=== PATIENT | female | born 1980 ===

== ENCOUNTER 2019-12-01 14:16 | Emergency (ER) | payer SELFPAY ==
--- NOTE | 2019-12-01 14:43 | EDM.PDOC ---
ED HPI GENERAL MEDICAL PROBLEM - General Stated Complaint: racing pulse Time Seen by Provider: 12/01/19 14:30 Source of Information: Reports: Patient - History of Present Illness INITIAL COMMENTS - FREE TEXT/NARRATIVE: Phuong states that she is very nervous. She notes that palpitations and a rapid heartbeat started around noon. She states that she has a history of anxiety. She does endorse drinking a lot of caffeine. She denies any illicit drug usage. 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 She seemed to have anxiety triggered after bringing in her friend who is in the ER bed next door to her for hallucinations of black worms coming out of her skin and other skin rash and dermatitis concerns. She grew up locally in [place]. - Related Data Allergies Allergy/AdvReac Type Severity Reaction Status Date / Time No Known Allergies Allergy Verified 12/01/19 14:36 Home Meds: Home Meds Phentermine HCl 30 mg PO DAILY 12/01/19 [History] ED ROS GENERAL - Review of Systems Review Of Systems: Comprehensive ROS is negative, except as noted in HPI. ED EXAM, GENERAL - Physical Exam Exam: See Below Exam Limited By: No Limitations General Appearance: Alert, WD/WN, No Apparent Distress, Anxious Eye Exam: Bilateral Eye: EOMI, Normal Inspection Ears: Normal External Exam, Hearing Grossly Normal Nose: Normal Inspection, Normal Mucosa Throat/Mouth: Normal Inspection, Normal Oropharynx, No Airway Compromise Head: Atraumatic, Normocephalic Neck: Normal Inspection, Supple, Non-Tender, Full Range of Motion. No: Thyromegaly Respiratory/Chest: No Respiratory Distress, Lungs Clear, Normal Breath Sounds. No: Rales, Rhonchi, Wheezing Cardiovascular: Regular Rate, Rhythm, Tachycardia. No: No Gallop, No Murmur, No Rub GI/Abdominal: Normal Bowel Sounds, Soft, Non-Tender Back Exam: Normal Inspection, Full Range of Motion Extremities: Normal Inspection, Normal Range of Motion, Non-Tender, No Pedal Edema, Normal Capillary Refill Neurological: Alert, Oriented, CN II-XII Intact, Normal Cognition, No Motor/ Sensory Deficits Psychiatric: Anxious Skin Exam: Warm, Dry, Intact Lymphatic: No Adenopathy Course - Vital Signs Text/Narrative:: Phuong was noted to become tearful after the RN caring for her hooked up her EKG. This revealed sinus tachycardia. After we had some discussion about what we could do to help with her anxiety and search for potential causes of sinus tachycardia, Phuong was agreeable to a trial of a vagal maneuver at the bedside. Her heart rate did not decrease by any means whatsoever. IV was started and lorazepam was titrated as we awaited labs and she was provided with crystalloid replacement as she appeared to be somewhat fluid depleted. Her heart rate gradually trended towards normal sinus rhythm at a pulse of 90. Her anxiety then became resolved. Lab findings were reviewed. She states that she last took phentermine a day or 2 ago. She believes that she is going to stop this. She gets this from Dr. Esparza at [facility]. She states that she also failed metformin as well as Topamax. She reassures me that these records would be available through the clinic at [place]. 1 where another, her symptoms resolved. I was not able to get on the [facility] to verify her stated prescription history, despite a call to the pharmacist, who was not able to be reached on the weekend. Provided standard discharge instructions, mainly returning with any recurrent issues or new concerns otherwise following up with her primary care provider. As an RN, she promises to continue to follow her blood pressure. Despite weight loss of 50 to 60 pounds that has been sustained, she feels that her pressures have been on the elevated side, she will continue to monitor this carefully and follow-up as appropriate. Last Recorded V/S: Last Vital Signs Temp 98.7 F 12/01/19 14:20 Pulse 93 12/01/19 16:12 Resp 20 12/01/19 14:20 BP 153/111 H 12/01/19 14:20 Pulse Ox 100 12/01/19 16:12 - Orders/Labs/Meds Orders: Active Orders 24 hr Category Date Time Status EKG Documentation Completion [RC] ASDIRECTED Care 12/01/19 14:37 Active Labs: Laboratory Tests 12/01/19 12/01/19 12/01/19 Range/Units 14:58 14:58 14:58 WBC 6.3 (4.0-11.0) K/uL RBC 5.03 (3.80-5.80) M/uL Hgb 14.5 (11.5-16.5) g/dL Hct 43.5 (37.0-47.0) % MCV 87 (76-96) fL MCH 28.8 (27.0-32.0) pg MCHC 33.3 (31.0-35.0) g/dL RDW 15.8 (11.0-16.0) % Plt Count 311 (150-500) K/uL MPV 9.4 (6.0-10.0) fL Neut % (Auto) 65.3 (45.0-70.0) % Lymph % (Auto) 24.4 (20.0-40.0) % Nye % (Auto) 8.7 (3.0-10.0) % Eos % (Auto) 0.8 L (1.0-5.0) % Baso % (Auto) 0.8 H (0.0-0.5) % Neut # (Auto) 4.14 (2.00-7.50) K/uL Lymph # (Auto) 1.55 (1.50-4.00) K/uL Nye # (Auto) 0.55 (0.20-0.80) K/uL Eos # (Auto) 0.05 (0.04-0.40) K/uL Baso # (Auto) 0.05 (0.02-0.10) K/uL Sodium 140 (136-145) mmol/L Potassium 3.9 (3.5-5.1) mmol/L Chloride 103 (98-107) mmol/L Carbon Dioxide 22.2 (21.0-32.0) mmol/L Anion Gap 18.7 H (5.0-15.0) mmol/L BUN 8 (8-26) mg/dL Creatinine 0.96 (0.55-1.02) mg/dL Est Cr Clr Drug Dosing 56.07 mL/min Estimated GFR (MDRD) > 60 (>60) MLS/MIN BUN/Creatinine Ratio 8.3 (6-25) Glucose 84 (74-100) mg/dL Calcium 9.0 (8.5-10.1) mg/dL Total Bilirubin 0.6 (0.0-1.0) mg/dL AST 31 (15-37) U/L ALT 40 (12-78) U/L Alkaline Phosphatase 77 (46-116) U/L Troponin I < 0.017 (0.000-0.060) ng/mL Total Protein 7.2 (6.4-8.2) g/dL Albumin 3.9 (3.4-5.0) g/dL Globulin 3.3 (2.2-4.2) g/dL Albumin/Globulin Ratio 1.2 (0.8-2.0) TSH, Ultra Sensitive 3.346 (0.358-3.740) uIU/mL Urine Color Urine Appearance (CLEAR) Urine pH (5.0-8.0) Ur Specific Steens (1.003-1.030) Urine Protein (NEGATIVE) mg/dL Urine Glucose (UA) (NEGATIVE) mg/dL Urine Ketones (NEGATIVE) mg/dL Urine Occult Blood (NEGATIVE) Urine Nitrite (NEGATIVE) Urine Bilirubin (NEGATIVE) Urine Urobilinogen (0.2-1.0) E.U./dL Ur Leukocyte Esterase (NEGATIVE) Urine RBC /HPF Urine WBC /HPF Ur Squamous Epith Cells /HPF Urine HCG, Qual (NEGATIVE) Urine Opiates Screen (NEGATIVE) Ur Oxycodone Screen (NEGATIVE) Urine Methadone Screen (NEGATIVE) Ur Barbiturates Screen (NEGATIVE) Ur Tricyclics Screen (NEGATIVE) Ur Phencyclidine Scrn (NEGATIVE) Ur Amphetamine Screen (NEGATIVE) U Methamphetamines Scrn (NEGATIVE) Urine MDMA Screen (NEGATIVE) U Benzodiazepines Scrn (NEGATIVE) U Cocaine Metab Screen (NEGATIVE) U Marijuana (THC) Screen (NEGATIVE) Ethyl Alcohol < 3.0 (<3.0) mg/dL 12/01/19 12/01/19 12/01/19 Range/Units 16:12 16:13 16:13 WBC (4.0-11.0) K/uL RBC (3.80-5.80) M/uL Hgb (11.5-16.5) g/dL Hct (37.0-47.0) % MCV (76-96) fL MCH (27.0-32.0) pg MCHC (31.0-35.0) g/dL RDW (11.0-16.0) % Plt Count (150-500) K/uL MPV (6.0-10.0) fL Neut % (Auto) (45.0-70.0) % Lymph % (Auto) (20.0-40.0) % Nye % (Auto) (3.0-10.0) % Eos % (Auto) (1.0-5.0) % Baso % (Auto) (0.0-0.5) % Neut # (Auto) (2.00-7.50) K/uL Lymph # (Auto) (1.50-4.00) K/uL Nye # (Auto) (0.20-0.80) K/uL Eos # (Auto) (0.04-0.40) K/uL Baso # (Auto) (0.02-0.10) K/uL Sodium (136-145) mmol/L Potassium (3.5-5.1) mmol/L Chloride (98-107) mmol/L Carbon Dioxide (21.0-32.0) mmol/L Anion Gap (5.0-15.0) mmol/L BUN (8-26) mg/dL Creatinine (0.55-1.02) mg/dL Est Cr Clr Drug Dosing mL/min Estimated GFR (MDRD) (>60) MLS/MIN BUN/Creatinine Ratio (6-25) Glucose (74-100) mg/dL Calcium (8.5-10.1) mg/dL Total Bilirubin (0.0-1.0) mg/dL AST (15-37) U/L ALT (12-78) U/L Alkaline Phosphatase (46-116) U/L Troponin I (0.000-0.060) ng/mL Total Protein (6.4-8.2) g/dL Albumin (3.4-5.0) g/dL Globulin (2.2-4.2) g/dL Albumin/Globulin Ratio (0.8-2.0) TSH, Ultra Sensitive (0.358-3.740) uIU/mL Urine Color Yellow Urine Appearance Clear (CLEAR) Urine pH 7.0 (5.0-8.0) Ur Specific Steens 1.020 (1.003-1.030) Urine Protein Negative (NEGATIVE) mg/dL Urine Glucose (UA) Negative (NEGATIVE) mg/dL Urine Ketones Trace H (NEGATIVE) mg/dL Urine Occult Blood Trace-lysed H (NEGATIVE) Urine Nitrite Negative (NEGATIVE) Urine Bilirubin Negative (NEGATIVE) Urine Urobilinogen 0.2 (0.2-1.0) E.U./dL Ur Leukocyte Esterase Negative (NEGATIVE) Urine RBC 0-5 H /HPF Urine WBC Not seen /HPF Ur Squamous Epith Cells Occasional /HPF Urine HCG, Qual Negative (NEGATIVE) Urine Opiates Screen Negative (NEGATIVE) Ur Oxycodone Screen Negative (NEGATIVE) Urine Methadone Screen Negative (NEGATIVE) Ur Barbiturates Screen Negative (NEGATIVE) Ur Tricyclics Screen Negative (NEGATIVE) Ur Phencyclidine Scrn Negative (NEGATIVE) Ur Amphetamine Screen Positive H (NEGATIVE) U Methamphetamines Scrn Positive H (NEGATIVE) Urine MDMA Screen Negative (NEGATIVE) U Benzodiazepines Scrn Negative (NEGATIVE) U Cocaine Metab Screen Negative (NEGATIVE) U Marijuana (THC) Screen Negative (NEGATIVE) Ethyl Alcohol (<3.0) mg/dL Meds: Medications Discontinued Medications Generic Name Dose Route Start Last Admin Trade Name Freq PRN Reason Stop Dose Admin Sodium Chloride 1,000 mls @ 999 mls/hr 12/01/19 14:36 12/01/19 14:45 Normal Saline IV 12/01/19 15:36 999 mls/hr .BOLUS ONE Administration Sodium Chloride 1,000 mls @ 999 mls/hr 12/01/19 16:13 Normal Saline IV 12/01/19 17:13 .BOLUS ONE Lorazepam 1 mg 12/01/19 14:34 12/01/19 14:44 Ativan IVPUSH 1 mg Q10M PRN Administration Anxiety Departure - Departure Time of Disposition: 17:15 Disposition: DC/Tfer to [facility] Condition: Good Clinical Impression: Sinus tachycardia - Discharge Information Instructions: Sinus Tachycardia Referrals: PCP,None [Primary Care Provider] - Forms: ED Department Discharge Care Plan Goals: Continue to drink plenty of fluids to prevent dehydration. Return if problem returns. Sepsis Event Note - Focused Exam Vital Signs: Vital Signs Temp Pulse Resp BP Pulse Ox 12/01/19 16:12 93 100 12/01/19 15:58 96 12/01/19 14:20 98.7 F 121 H 20 153/111 H 100 Date Exam was Performed: 12/01/19 Time Exam was Performed: 17:21 - My Orders Last 24 Hours: My Active Orders 12/01/19 14:37 EKG Documentation Completion [RC] ASDIRECTED - Assessment/Plan Last 24 Hours: My Active Orders 12/01/19 14:37 EKG Documentation Completion [RC] ASDIRECTED
[2019-12-01] MEDS: LORazepam 2 MG/ML SDV IVPUSH PRN (14:44)
[2019-12-01] MEDS: Sodium Chloride 0.9% 1,000 ML IV ONE (14:45)
[2019-12-01] MEDS ORDERED: Sodium Chloride 0.9% 1,000 ML IV ONE (16:13)
== END 2019-12-01 17:07 ==
LOC: EDBD 14:16 → LB.ED 14:16
DX: R00.0 Tachycardia, unspecified (principal); Z79.899 Other long term (current) drug therapy
CPT/HCPCS: 36415; 80053; 80307; 81001; 81025; 84443; 84484; 85025; 93005; 96374; 99284; 99285-25; J2060; J7030